=== PATIENT | female | born 1965 | race Hispanic/Latino ===

== ENCOUNTER 2018-01-05 08:41 | Outpatient (CLI) | payer BC, OTHER ==
--- NOTE | 2018-01-05 13:36 | Ultrasound Report ---
ULTRASOUND THYROID SCAN History: Nontoxic goiter Findings: The thyroid gland is mildly enlarged. The right lobe measures 5.7 x 1.7 x 1.9 cm. The left lobe measures 6.2 x 2.1 x 1.9 cm. The isthmus measures 0.4 cm. There are 3 tiny hypoechoic cysts in the right thyroid lobe measuring 3 mm to 5 mm in diameter. There are 2 hypoechoic cysts in the left thyroid lobe measuring 3 mm and 7 mm. No evidence for suspicious thyroid mass or cervical adenopathy. Impression: Mild thyromegaly. Bilateral thyroid cysts. No discrete or suspicious thyroid nodule is detected.
--- NOTE | 2018-01-10 15:36 | Mammography Report ---
BILATERAL DIGITAL SCREENING MAMMOGRAM with CAD: 01/05/18 08:41:00 CLINICAL: Routine screening. COMPARISON:10/06/16 FINDINGS: The breasts are heterogeneously dense, which may obscure small masses. No mass, architectural distortion or suspicious calcifications. IMPRESSION: No mammographic evidence of malignancy. BI-RADS CATEGORY: 1 - - Negative RECOMMENDATION: Routine mammographic screening in one year. COMMENT: Patient follow-up letters are generated by our [employer] application.
== END 2018-01-05 08:42 | disposition home or self-care (01) ==
LOC: MAMMO 08:41
PROVIDERS: ATTEND Internal Medicine
DX: Z12.31 Encounter for screening mammogram for malignant neoplasm of breast (principal); E01.0 Iodine-deficiency related diffuse (endemic) goiter
CPT/HCPCS: 76536; 77067

== ENCOUNTER 2020-01-07 09:57 | Outpatient (CLI) | payer OTHER ==
--- NOTE | 2020-01-07 17:53 | Mammography Report ---
DIGITAL SCREENING MAMMOGRAM WITH CAD, 01/07/2020 INDICATION: Routine screening mammography. TECHNIQUE: Digital bilateral 2D mammography was obtained in the craniocaudal and mediolateral obliq ue projections. This examination was interpreted with the benefit of Computer-Aided Detection analysi s. COMPARISON: Prior mammogram 10/06/2016 FINDINGS: Breast Density: The breasts are heterogeneously dense, which may obscure small masses. There is no evidence of dominant mass, suspicious calcifications or architectural distortion in eithe r breast. There has been no significant change compared with the prior examination. IMPRESSION: Follow up recommendation: Routine yearly BI-RADS Category 1: Negative. A "normal" or negative report should not discourage follow up or biopsy of a clinically significant f inding. A written summary of these findings will be mailed to the patient. The patient will be entered into a mammography reporting system which will generate a reminder letter for the patient's next appointmen t at the appropriate interval. [employer] recommends yearly mammograms starting at age 40 and continuing as l june as a woman is in good health. Breast MRI is recommended for women with an approximate 20-25% or greater lifetime risk of breast cancer, including women with a strong family history of breast or [place] cancer or who have been treated for Hodgkin's disease. Signer Name: Kenya Mcgraw MD Signed: 01/07/2020 5:48 PM Workstation Name: [email or web address]
== END 2020-01-07 09:58 | disposition home or self-care (01) ==
LOC: MAMMO 09:57
PROVIDERS: ATTEND Internal Medicine
DX: Z12.31 Encounter for screening mammogram for malignant neoplasm of breast (principal); N64.89 Other specified disorders of breast
CPT/HCPCS: 77067